=== PATIENT | male | born 1985 | race Caucasian/White ===

== ENCOUNTER 2020-03-30 22:04 | Emergency (ER) | payer OTHER, MEDICAID, SELFPAY ==
--- NOTE | 2020-03-30 22:05 | ED_ITS ---
HPI - Male Genitourinary General Chief complaint: Back Pain/Injury Stated complaint: KIDNEY BACK/BACK PAIN Time Seen by Provider: 03/30/20 22:05 Source: patient Mode of arrival: Ambulatory Limitations: no limitations History of Present Illness HPI Narrative: 34M non smoker with no significant medical history presents with a few days of Left upper back and flank pain. He denies any injury or known painful motions, but admits that he is constantly chasing a toddler. He states it can worsen with moving. He denies N/V/D. He denies fever or shaking chills. His said it sounds like when she has had a kidney infection so he wanted to be checked for that. He denies any dysuria, or urgency, but has had frequency. He denies urinary discharge. MD Complaint: other Onset (ago): day(s) Duration: constant Location: left flank Severity: moderate Quality: aching Relieving factors: rest Exacerbating factors: palpation and movement Associated symptoms: Reports denies other symptoms Related Data Home Medications Medication Instructions Recorded Confirmed cetirizine 10 mg capsule 10 mg PO DAILY 06/11/18 06/11/18 fluoxetine PO 06/11/18 06/11/18 glucosamine-methylsulfonylmeth PO 06/11/18 06/11/18 Previous Rx's Medication Instructions Recorded cyclobenzaprine 10 mg PO TID PRN #14 tab 03/30/20 ketorolac 10 mg PO Q6H PRN #14 tab 03/30/20 Allergies Allergy/AdvReac Type Severity Reaction Status Date / Time No Known Drug Allergies Allergy Verified 06/11/18 10:36 Review of Systems Constitutional Constitutional: Denies chills, Denies fatigue, Denies fever(s), Denies frequent falls, Denies lethargy and Denies weakness Eyes Eyes: Denies change in vision, Denies eye discharge, Denies irritation and Denies loss of vision ENT Ears, Nose, Mouth, and Throat: Denies change in voice, Denies dizziness, Denies neck pain, Denies sore throat and Denies throat swelling Cardiovascular Cardiovascular: Denies chest pain, Denies irregular heart rhythm, Denies lightheadedness, Denies palpitations, Denies dyspnea, Denies dyspnea on exertion and Denies orthopnea Respiratory Respiratory: Denies cough, Denies dyspnea, Denies dyspnea on exertion and Denies wheezing Gastrointestinal Gastrointestinal: Denies abdominal pain, Denies change in bowel habits, Denies diarrhea, Denies nausea and Denies vomiting Genitourinary Genitourinary: Denies difficulty urinating, Denies dysuria and Denies urinary urgency Genitourinary: Denies dysuria and Denies urinary urgency Musculoskeletal Musculoskeletal: Reports back pain, Denies neck pain and Denies numbness Integumentary/Breasts Skin/Breast: Denies pruritus, Denies erythema, Denies rash and Denies wounds Neurologic Neurologic: Denies behavioral changes, Denies confusion, Denies dizziness, Denies frequent falls, Denies loss of vision, Denies numbness and Denies weakness Psychiatric Psychiatric: Denies anxiety, Denies behavioral changes, Denies confusion, Denies depression, Denies homicidal ideation and Denies suicidal ideation Endocrine Endocrine: Denies fatigue, Denies flushing and Denies palpitations Hematologic/Lymphatic Hematologic/Lymphatic: Denies easy bruising Allergic/Immunologic Allergic/Immunologic: Denies urticaria, Denies throat swelling and Denies wheezing Patient History Social History Smoking Status: Never smoker Smoking Status: Never smoker Exam Narrative Exam Narrative: GENERAL: [34] year old patient appears stated age. Well- nourished, well-developed patient, in mild distress. HEAD: Atraumatic. Normocephalic. EYES: Pupils equal round and reactive. Extraocular motions intact. No scleral icterus. No injection or drainage. ENT: Nose without bleeding, purulent drainage. Throat without erythema, tonsillar hypertrophy or exudate. Airway patent. NECK: Trachea midline. Non tender CARDIOVASCULAR: Regular rate and rhythm without murmurs, gallops, or rubs. RESPIRATORY: Clear to auscultation. Breath sounds equal bilaterally. No wheezes, rales, or rhonchi. GASTROINTESTINAL: Abdomen soft, non-tender, nondistended. EXTREMITIES: No edema or joint tenderness. BACK: Left CVA tenderness Nontender without deformity or crepitance. NEURO: AOx3. SKIN: No rash or erythema of visible areas Initial Vital Signs Initial Vital Signs: Vital Signs Temperature 97.6 F 03/30/20 22:09 Pulse Rate 64 03/30/20 22:09 Respiratory Rate 18 03/30/20 22:09 Blood Pressure 144/73 H 03/30/20 22:09 Pulse Oximetry 100 03/30/20 22:09 Course Orders Ordered: ED Orders 03/30/20 22:30 Alanine Aminotransferase Stat Alkaline Phosphatase Stat Aspartate Aminotransferase Stat Basic Metabolic Panel Stat Bilirubin Total Stat Complete Blood Count AUTO DIFF Stat D Dimer Stat Ferritin Stat 03/30/20 22:38 CT kidney ureter bladder (KUB) Stat Sodium Chloride (Normal Saline 0.9%) 1,000 mls @ 1,000 mls/hr IV BOLUS ONE Stop: 03/30/20 23:32 Last Admin: 03/30/20 22:54 Dose: 1,000 mls/hr Documented by: ABIGAIL Discontinued Medications Cyclobenzaprine HCl (Flexeril 10 Mg Prepack) 1 bottle MISC SEEINSTR ONE Stop: 03/30/20 23:24 Ketorolac Tromethamine (Toradol) 15 mg IV NOW ONE Stop: 03/30/20 22:34 Last Admin: 03/30/20 22:54 Dose: 15 mg Documented by: ABIGAIL Vital Signs Vital signs: Vital Signs - 8 hr 03/30/20 22:09 Temperature 97.6 F Pulse Rate 64 Respiratory Rate 18 Blood Pressure 144/73 H Pulse Oximetry 100 MDM - Male Genitourinary Lab Data Result diagrams: 03/30/20 22:30 03/30/20 22:30 Labs: Lab Results 03/30/20 03/30/20 03/30/20 Range/Units 22:30 22:30 22:30 WBC 7.0 (4.5-11.0) X10^3/uL RBC 4.77 (4.5-5.9) X10^6/uL Hgb 14.3 (13.5-17.5) g/dL Hct 41.6 (41-53) % MCV 87.2 (80-100) fL MCH 30.0 (26-34) PG MCHC 34.4 (30-36) % RDW 13.1 (11.6-14.8) % Plt Count 181 (150-400) X10^3/uL Neut % (Auto) 52.5 (50-75) % Lymph % (Auto) 30.7 (25-40) % Tillman % (Auto) 11.7 (3-14) % Eos % (Auto) 4.3 H (2-4) % Baso % (Auto) 0.8 (0-2) % Neut # (Auto) 3700 (2950-8907) /uL Lymph # (Auto) 2100 (0720-0317) /uL Tillman # (Auto) 800 (0-900) /uL Eos # (Auto) 300 (0-450) /uL Baso # (Auto) 100 (0-100) /uL Sodium 138 (137-145) mmol/L Potassium 4.1 (3.4-5.1) mmol/L Chloride 105 (98-107) mmol/L Carbon Dioxide 28 (22-32) mmol/L BUN 23 H (9-20) mg/dL Creatinine 1.13 (0.66-1.25) mg/dL Estimated GFR > 60.0 (>60) mL/min BUN/Creatinine Ratio 20.4 (6-22) Glucose 103 H (70-100) mg/dL Calcium 9.0 (8.4-10.2) mg/dL Total Bilirubin 0.5 (0.2-1.3) mg/dL AST 57 (17-59) IU/L ALT 94 H (<50) IU/L Alkaline Phosphatase 80 (38-126) U/L Urine Dip Bedside Urine Glucose Negative Bedside Urine Bilirubin - Negative Bedside Urine Ketone - Negative Urine Specific Bronson 1.015 Bedside Urine Occult Blood +/- Bedside Urine pH 7.5 Bedside Urine Protein - Negative Bedside Urine Urobilinogen - Negative Bedside Urine Nitrite - Negative Bedside Urine Leukocytes - Negative Esterase MDM Narrative Medical decision making narrative: Multiple etiologies for patient's symptoms considered including: [pyelo vs. kidney stones vs. MSK injury vs. other] Patient's symptoms improved or duration of stay with above-stated therapies. Findings and discharge diagnosis discussed with patient/family followed by verbalization of understanding Return precautions discussed with patient/family whom verbalize understanding. Discharge Plan Departure Patient Disposition: Home Clinical Impression: Acute left flank pain Instructions: DI for Flank Pain Activity Restrictions/Additional Instructions: *You have been diagnosed with [left flank pain. Urine would suggest no kidney infection, labs are reassuring and CT rules out kidney stone.] *What to do: *Take medications as directed *Follow up with your primary care provider in 2-3 days, call for an appointment. Let them know you were seen in the Emergency Department and that we ask that you be seen in follow up *Return to ER if you should have any new, worsening or concerning symptoms Prescriptions: New cyclobenzaprine 10 mg tablet 10 mg PO TID PRN (Reason: muscle spasm) Qty: 14 RF: 0 ketorolac 10 mg tablet 10 mg PO Q6H PRN (Reason: pain) Qty: 14 RF: 0 No Action cetirizine [Zyrtec] 10 mg capsule 10 mg PO DAILY RF: 0 fluoxetine PO RF: 0 glucosamine-methylsulfonylmeth PO RF: 0 Referrals: [facility] [Outside]
[2020-03-30 22:09] VITALS: BP 144/73; PULSE 64; RESP 18; TEMP 36.4; O2SAT 100
--- NOTE | 2020-03-30 22:38 | DI.CT.S_ITS ---
PROCEDURE: CT KIDNEY URETER BLADDER (KUB) INDICATIONS: Left flank pain, radiates to groin TECHNIQUE: Noncontrast 5 mm thick sections acquired from the diaphragms to the symphysis. 5 mm thick coronal and sagittal reformats were then performed. For radiation dose reduction, the following was used: automated exposure control, adjustment of mA and/or kV according to patient size. COMPARISON: None. FINDINGS: Image quality: Excellent. Lung bases: Lung bases are clear. 8mm right basilar pulmonary status. Heart size is normal. Urinary system: Both kidneys are normal in size. No kidney stones. No hydronephrosis or perinephric fat stranding. Both ureters appear non-dilated throughout their expected courses. Bladder wall thickness is normal; no calcified bladder stones. Other solid organs: Liver is normal in size. Gallbladder is contracted, but within normal limits. Pancreas is normal in contours. Spleen is normal in size. No adrenal nodules. Peritoneum and bowel: Small hiatal hernia. Unenhanced bowel loops demonstrate normal wall thickness and caliber. No free fluid or air. It is not visualized and may be absent. Nodes and vessels: No retroperitoneal or mesenteric adenopathy by size criteria. Aorta and inferior vena cava are normal in caliber. Abdominal wall: No ventral hernias. Pelvis: No free pelvic fluid. No inguinal hernias or adenopathy. Bones: No suspicious bony lesions. No vertebral body compression fractures. IMPRESSION: No renal stone or hydronephrosis. Dictated by: Ayleen Mcneill MD, PhD on 03/31/2020 at 7:15 Approved by: Ayleen Mcneill MD, PhD on 03/31/2020 at 7:17
[2020-03-30 22:41] LABS: Add Manual Diff / Slide Review NO; Basophils Absolute Auto 100 /uL (0-100); Basophils Percent Auto 0.8 % (0-2); Eosinophils Absolute Auto 300 /uL (0-450); Eosinophils Percent Auto 4.3 % (2-4); Hematocrit 41.6 % (41-53); Hemoglobin 14.3 g/dL (13.5-17.5); Lymphocytes Absolute Auto 2100 /uL (1100-4500); Lymphocytes Percent Auto 30.7 % (25-40); Mean Corpuscular HGB Conc 34.4 % (30-36); Mean Corpuscular Volume 87.2 fL (80-100); Monocytes Absolute Auto 800 /uL (0-900); Monocytes Percent Auto 11.7 % (3-14); Neutrophils Absolute Auto 3700 /uL (1500-7000); Neutrophils Percent Auto 52.5 % (50-75); Platelet Count 181 X10^3/uL (150-400); Red Blood Cell Count 4.77 X10^6/uL (4.5-5.9); Red Cell Distribution Width 13.1 % (11.6-14.8)
[2020-03-30 22:50] LABS: BUN Creatinine Ratio 20.4 (6-22); Blood Urea Nitrogen 23 mg/dL (9-20); Carbon Dioxide 28 mmol/L (22-32); Chloride 105 mmol/L (98-107); Estimated Glomerular Filt Rate > 60.0 mL/min (>60); Glucose 103 mg/dL (70-100); HEMOLYSIS 26 (0-50); Potassium 4.1 mmol/L (3.4-5.1); Sodium 138 mmol/L (137-145)
[2020-03-30] MEDS: KETOROLAC 60 MG/2 ML VIAL 15 MG IV (22:54)
[2020-03-30] MEDS: SODIUM CHLORIDE 0.9% 1,000 ML 1000 ML IV (22:54)
[2020-03-30 23:23] LABS: Alanine Aminotransferase 94 IU/L (<50); Alkaline Phosphatase 80 U/L (38-126); Aspartate Aminotransferase 57 IU/L (17-59); Bilirubin Total 0.5 mg/dL (0.2-1.3)
[2020-03-30] MEDS: CYCLOBENZAPRINE 10 MG PREPACK 1 BOTTLE MISC (23:33)
[2020-03-30 23:39] LABS: D Dimer 213 ng/mL (<230)
[2020-03-30 23:59] LABS: Ferritin 61 ng/mL (18-464)
== END 2020-03-31 00:09 | disposition home or self-care (01) ==
PROVIDERS: Emergency Provider Emergency Medicine
DX: R10.9 Unspecified abdominal pain (principal); R35.0 Frequency of micturition
CPT/HCPCS: 36415; 74176; 80048; 81003; 82247; 82728; 84075; 84450; 84460; 85025; 85379; 96361; 96374; 99284; J1885

== ENCOUNTER 2020-07-14 15:09 | Emergency (ER) | payer OTHER, MEDICAID, SELFPAY ==
[2020-07-14 15:10] VITALS: BP 136/75; PULSE 74; RESP 15; TEMP 36.2; O2SAT 98
[2020-07-14 15:15] VITALS: BP 136/75; PULSE 71; O2SAT 96
[2020-07-14 15:30] VITALS: BP 116/57; PULSE 65; O2SAT 95
[2020-07-14] MEDS: FAMOTIDINE 20 MG TABLET PO (15:53)
[2020-07-14] MEDS: TRIMETH/SULFA 160/800 (DS) TABLET 1 TAB PO (15:53)
[2020-07-14] MEDS: predniSONE 20 MG TABLET 40 MG PO (15:54)
[2020-07-14] MEDS: TET,DIPH,PERTUSS(ACELL),VAC/PF 0.5 ML SYRINGE IM (15:59)
[2020-07-14 16:00] VITALS: PULSE 60; O2SAT 96
[2020-07-14 16:01] VITALS: BP 114/57; PULSE 66; O2SAT 95
[2020-07-14 16:30] VITALS: BP 104/51; PULSE 67; O2SAT 97
--- NOTE | 2020-07-14 21:41 | ED_ITS ---
HPI - Skin/Abscess/Foreign Bdy <Andrew SolomonISSAC Pham - Last Filed: 07/14/20 22:13> General Chief complaint: Skin/Abscess/Foreign Body Stated complaint: bee sting, swollen right hand Time Seen by Provider: 07/14/20 15:23 Source: patient Mode of arrival: Ambulatory Limitations: no limitations History of Present Illness HPI narrative: This is 34-year-old male, nonsmoker, who has non contributory medical history presents to ED with chief complain of right hand pain and itching, swelling, warmth, redness and he was stung possibly by a bee yesterday at noon while he was in outdoor. Patient right dominant hand. Patient reports today he felt his right hand became hot to touch. Patient unsure of last tetanus immunization. He denies chest pain, breathing difficulty, nausea, vomiting, abdominal pain, oropharyngeal swelling or near syncope. Patient denies fever or chills. Patient is not immunocompromised. Related Data Home Medications Medication Instructions Recorded Confirmed cetirizine 10 mg capsule 10 mg PO DAILY 06/11/18 06/11/18 fluoxetine PO 06/11/18 06/11/18 glucosamine-methylsulfonylmeth PO 06/11/18 06/11/18 lamotrigine 20 mg PO DAILY 07/14/20 07/14/20 Previous Rx's Medication Instructions Recorded cyclobenzaprine 10 mg PO TID PRN #14 tab 03/30/20 ketorolac 10 mg PO Q6H PRN #14 tab 03/30/20 prednisone 40 mg PO DAILY 5 Days tab 07/14/20 sulfamethoxazole-trimethoprim 1 tab PO DAILY 5 Days tab 07/14/20 Allergies Allergy/AdvReac Type Severity Reaction Status Date / Time No Known Drug Allergies Allergy Verified 06/11/18 10:36 Review of Systems <Andrew CoreyISSAC Bryant - Last Filed: 07/14/20 22:13> Review of Systems Narrative: General: Denies fever, chills, fatigue, malaise, sweats. HEENT: Denies sinus pain, ear pain, sore throat, difficulty swallowing, dizziness. Respiratory: Denies dyspnea, cough, wheezing, hemoptysis, sputum. Cardiovascular: Denies chest pain, palpitations, orthopnea, edema. Gastrointestinal: Denies nausea, vomiting, abdominal pain, diarrhea, constipation, melena. : Denies dysuria, frequency, incontinence, hematuria, urinary retention. Musculoskeletal: Denies weakness, joint pain or bony pain. Skin: See HPI Neurologic: Denies weakness, headache, numbness, change in speech, confusion, seizures, incoordination. Psychiatric: No concerning psychosocial issues. 12-point review of systems is negative except for those stated above. Patient History <ISSAC Cee - Last Filed: 07/14/20 22:13> Medical History Anxiety (Acute) Depression (Acute) History of traumatic rupture of spleen (Acute) Seasonal allergies (Acute) Surgical History H/O sinus surgery (Acute) History of appendectomy (Acute) History of tonsillectomy (Acute) Social History Smoking Status: Never smoker Smoking Status: Never smoker alcohol intake frequency: a few times a month Substance Use Type: does not use Exam <ISSAC Cee - Last Filed: 07/14/20 22:13> Narrative Exam Narrative: General appearance: well developed, well nourished, in no acute distress. Head: normocephalic, atraumatic, no scalp lesions, non-tender. ENT: Hearing grossly intact. Nose without bleeding, purulent discharge, septal hematoma or deviation. Turbinate without erythema or swelling. Facial sinuses nontender to palpate. Mucous membrane moist, no mucosal lesion. Throat without erythema, tonsillar hypertrophy or exudate. Uvula in midline, airway patent without edema. Neck/Thyroid: neck supple, full range of motion, no visible masses or meningeal signs. No JVD, non-tender without lymphadenopathy. Skin: Erythema and edema in right dorsal hand and fingers extending to wrist and distal forearm which is warm to touch. Patient has limited range of motion on right hand due to swelling. No suspicious rashes, lesions over visible areas. Warm and dry and appropriate color for ethnicity. Heart: no clubbing, no cyanosis, no edema. S1 and S2 normal. RRR w/o murmurs, clicks, or bruits. Lungs: Breathing even and unlabored. No stridor. No accessory muscles used. Able to speak in full sentences. Chest: normal shape and expansion. Abdomen: non-obese, non-distended. Neurologic: alert and oriented. Cognitive exam, RESPIRATORY SUPPORT TECHNICIAN and PNS grossly intact on informal exam. Psych: good eye contact, normal affect. Initial Vital Signs Initial Vital Signs: Vital Signs Temperature 97.1 F L 07/14/20 15:10 Pulse Rate 74 07/14/20 15:10 Respiratory Rate 15 07/14/20 15:10 Blood Pressure 136/75 07/14/20 15:10 Pulse Oximetry 98 07/14/20 15:10 Extrem Right upper extremity: hand Details: abnormal to inspection, normal capillary refill, neurosensory exam normal, tenderness, vascular exam Details: radial pulse present and normal capillary refill, abnormal ROM of finger (Flexion slightly limited Secondary to swelling to fingers), warmth, swelling and other (Erythematous and the edge marked with skin pen) <Greta Sahni MD - Last Filed: 07/15/20 07:19> Initial Vital Signs Initial Vital Signs: Vital Signs Temperature 97.1 F L 07/14/20 15:10 Pulse Rate 74 07/14/20 15:10 Respiratory Rate 15 07/14/20 15:10 Blood Pressure 136/75 07/14/20 15:10 Pulse Oximetry 98 07/14/20 15:10 Scores <ISSAC Cee - Last Filed: 07/14/20 22:13> GCS [place] coma scale eye opening: Spontaneous [place] coma scale verbal response: Orientated [place] coma scale motor response: Obey commands [place] coma scale total score: 15 Course <ISSAC Cee - Last Filed: 07/14/20 22:13> Orders Ordered: Discontinued Medications Diphtheria/Tetanus/Acell Pertussis (Adacel) 0.5 ml IM .ONCE ONE Stop: 07/14/20 15:39 Last Admin: 07/14/20 15:59 Dose: 0.5 ml Documented by: LEATHA Famotidine (Pepcid Ac) 20 mg PO NOW ONE Stop: 07/14/20 15:36 Last Admin: 07/14/20 15:53 Dose: 20 mg Documented by: HITESH Prednisone (Deltasone) 40 mg PO NOW ONE Stop: 07/14/20 15:33 Last Admin: 07/14/20 15:54 Dose: 40 mg Documented by: HITESH Trimethoprim/Sulfamethoxazole (Bactrim Ds) 1 tab PO NOW ONE Stop: 07/14/20 15:38 Last Admin: 07/14/20 15:53 Dose: 1 tab Documented by: HITESH Vital Signs Vital signs: Vital Signs - 8 hr 07/14/20 15:10 07/14/20 15:15 07/14/20 15:30 Temperature 97.1 F L Pulse Rate 74 71 65 Respiratory Rate 15 Blood Pressure 136/75 136/75 116/57 L Pulse Oximetry 98 96 95 07/14/20 16:00 07/14/20 16:01 07/14/20 16:30 Temperature Pulse Rate 60 66 67 Respiratory Rate Blood Pressure 114/57 L 104/51 L Pulse Oximetry 96 95 97 <Greta Sahni MD - Last Filed: 07/15/20 07:19> Orders Ordered: Discontinued Medications Diphtheria/Tetanus/Acell Pertussis (Adacel) 0.5 ml IM .ONCE ONE Stop: 07/14/20 15:39 Last Admin: 07/14/20 15:59 Dose: 0.5 ml Documented by: LEATHA Famotidine (Pepcid Ac) 20 mg PO NOW ONE Stop: 07/14/20 15:36 Last Admin: 07/14/20 15:53 Dose: 20 mg Documented by: HITESH Prednisone (Deltasone) 40 mg PO NOW ONE Stop: 07/14/20 15:33 Last Admin: 07/14/20 15:54 Dose: 40 mg Documented by: HITESH Trimethoprim/Sulfamethoxazole (Bactrim Ds) 1 tab PO NOW ONE Stop: 07/14/20 15:38 Last Admin: 07/14/20 15:53 Dose: 1 tab Documented by: HITESH Vital Signs Vital signs: Vital Signs - 8 hr 07/14/20 15:10 07/14/20 15:15 07/14/20 15:30 Temperature 97.1 F L Pulse Rate 74 71 65 Respiratory Rate 15 Blood Pressure 136/75 136/75 116/57 L Pulse Oximetry 98 96 95 07/14/20 16:00 07/14/20 16:01 07/14/20 16:30 Temperature Pulse Rate 60 66 67 Respiratory Rate Blood Pressure 114/57 L 104/51 L Pulse Oximetry 96 95 97 [facility] - Skin/Abscess/Foreign Bdy <Andrew ISSAC Flowers - Last Filed: 07/14/20 22:13> Differential Diagnosis Differential diagnosis: Likely cellulitis, insect bites and other (Allergic reaction to insect bite) Medical Records Attestation: I reviewed the patient's medical records. [facility] Narrative Medical decision making narrative: This is a 34-year-old male presents to ED with right dominant hand warmth, swelling, pain and itching sensation and redness after he was stung by possibly of be yesterday afternoon. Patient noted warmth spreading on right hand today with difficulty flexing his fingers due to swelling. Patient takes singular and Zyrtec daily for seasonal allergies. No anaphylactic symptoms reported or appreciated during exam. Physical exam concerning for cellulitis from insect bite. Patient is afebrile and hemodynamically stable. Patient was medicated with 1st dose of Septra DS, prednisone, Pepcid and Tdap updated. Return precautions were discussed with patient and patient verbalized understanding and agreement with the treatment plan. Discharge Plan Departure Patient Disposition: Home Clinical Impression: Hx of insect sting Cellulitis Qualifiers: Site of cellulitis: extremity Site of cellulitis of extremity: upper extremity Laterality: right Qualified Code(s): L03.113 - Cellulitis of right upper limb Discharge Date/Time: 07/14/20 16:43 Instructions: DI for Cellulitis -- Adult, DI for Insect Bites and Stings Activity Restrictions/Additional Instructions: You have been diagnosed with [cellulitis likely from insect bites on right dominant hand.]. What to do: *Take your medications as directed. Please continue to take antibiotic medication twice a day for next 5 days. Prednisone 40 mg daily for next 4 days which is a steroid. You can add [id number] Pepcid 20 mg once a day and Benadryl 25-50 mg as needed for itching, redness, swelling up to 3 times a day. Prednisone may cause drowsiness so please take precautions not driving, drinking alcohol or operating heavy equipments. *Follow up with your primary care provider in 2-3 days, call for an appointment. Let them know you were seen in the ED and that we asked you to be seen in follow up. *Return to ED if you have any new, worsening, or concerning symptoms, such as [fever, worsening redness, warmth, purulent discharge, increasing pain, swelling, chest pain, breathing difficulty, unable to tolerate fluids, or any acute concerns]. Prescriptions: New sulfamethoxazole-trimethoprim 800-160 mg tablet 1 tab PO DAILY 5 Days RF: 0 prednisone 20 mg tablet 40 mg PO DAILY 5 Days RF: 0 No Action cetirizine [Zyrtec] 10 mg capsule 10 mg PO DAILY RF: 0 fluoxetine PO RF: 0 glucosamine-methylsulfonylmeth PO RF: 0 cyclobenzaprine 10 mg tablet 10 mg PO TID PRN (Reason: muscle spasm) Qty: 14 RF: 0 ketorolac 10 mg tablet 10 mg PO Q6H PRN (Reason: pain) Qty: 14 RF: 0 lamotrigine 20 mg PO DAILY RF: 0 Referrals: [facility] [Outside] <Greta Sahni MD - Last Filed: 07/15/20 07:19> Cosign ED Attending Cosignature Attestation: I was immediately available in the department for consultation throughout this patient's visit. I agree with documentation as above. Greta Sahni MD
== END 2020-07-14 16:43 | disposition home or self-care (01) ==
PROVIDERS: Emergency Provider Nurse Practitioner Family
DX: L03.113 Cellulitis of right upper limb (principal); Z23 Encounter for immunization
CPT/HCPCS: 90471; 99283; 90715; A9270

== ENCOUNTER 2021-03-20 15:44 | Emergency (ER) | payer OTHER, MEDICAID, SELFPAY ==
[2021-03-20 15:46] VITALS: BP 137/73; PULSE 65; RESP 16; TEMP 37; O2SAT 98
[2021-03-20] MEDS: TET,DIPH,PERTUSS(ACELL),VAC/PF 0.5 ML SYRINGE IM (16:10)
--- NOTE | 2021-03-20 16:38 | DI.RAD.S_ITS ---
PROCEDURE: XR TIBIA FIBULA LT 2V INDICATIONS: laceration TECHNIQUE: 2 views of the tibia and fibula were acquired. COMPARISON: None. FINDINGS: Bones: No fractures or dislocations. No suspicious bony lesions. Soft tissues: No suspicious soft tissue calcifications or masses. No radiopaque foreign bodies are seen. IMPRESSION: No significant plain film abnormality is seen. Dictated by: Rob Urrutia M.D. on 03/20/2021 at 16:03 Approved by: Rob Urrutia M.D. on 03/20/2021 at 16:03
--- NOTE | 2021-03-20 17:04 | ED.WOUNDLAC ---
HPI - Wound/Laceration General Chief Complaint: Wound/Laceration Stated Complaint: RIGHT LEG LACERATION Time Seen by Provider: 03/20/21 16:01 Source: patient Mode of arrival: Ambulatory History of Present Illness HPI narrative: Vlad presents today with chief complaint of cut to his right brennan. He reports that he was chopping some wood with an Axe and child bumped him which cause the ax to hit into his brennan. They immediately washed it out and his put some topical glue. Unknown last tetanus date. He reports that it immediately started to swell up a but has now started to go back down. He is able to walk on it but does report slight pain. He denies any other acute concerns or complaints at this time. Related Data Home Medications Medication Instructions Recorded Confirmed cetirizine 10 mg capsule 10 mg PO DAILY 06/11/18 06/11/18 fluoxetine PO 06/11/18 06/11/18 glucosamine-methylsulfonylmeth PO 06/11/18 06/11/18 lamotrigine 20 mg PO DAILY 07/14/20 07/14/20 Previous Rx's Medication Instructions Recorded cyclobenzaprine 10 mg PO TID PRN #14 tab 03/30/20 ketorolac 10 mg PO Q6H PRN #14 tab 03/30/20 Allergies Allergy/AdvReac Type Severity Reaction Status Date / Time No Known Drug Allergies Allergy Verified 06/11/18 10:36 Review of Systems Review of Systems ROS Unobtainable: All systems reviewed & are unremarkable except as noted in HPI and below Patient History Medical History (Updated 03/20/21 @ 17:10 by Partha Stewart PA-C) Anxiety Depression History of traumatic rupture of spleen Seasonal allergies Surgical History H/O sinus surgery History of appendectomy History of tonsillectomy Social History Smoking Status: Never smoker Smoking Status: Never smoker alcohol intake frequency: a few times a month Substance Use Type: does not use Exam Narrative Exam Narrative: Exam Narrative: Const General: cooperative, healthy appearing, comfortable, no acute distress, well developed and well groomed Nutritional Appearance: Elevated BMI Orientation: alert and oriented x3 HENMT Head: normal to inspection and atraumatic Ears: hearing grossly normal bilaterally Nose: external nose normal and nares normal Face and sinus: normal facial exam Neck Neck: normal visual inspection and supple Resp Effort & Inspection: normal respiratory effort, able to speak in complete sentences, no audible wheezes, not labored, no nasal flaring and no respiratory distress Neuro General: alert, oriented x3, gait normal, tone normal and moves all extremities Cognition: normal cognition Speech: speech normal Gait: normal gait Extremities Bilateral lower extremities exposed for evaluation. 2 cm linear laceration to the right anterior brennan noted. Mild surrounding tenderness to the touch. Slight swelling noted. No significant surrounding erythema. Appearance: grossly normal and well kempt Mental Status: mental status grossly normal Speech and Movement: speech and movement normal Mood: congruent mood Affect: normal affect Initial Vital Signs Initial Vital Signs: Vital Signs Temperature 98.6 F 03/20/21 15:46 Pulse Rate 65 03/20/21 15:46 Respiratory Rate 16 03/20/21 15:46 Blood Pressure 137/73 03/20/21 15:46 Pulse Oximetry 98 03/20/21 15:46 Course Orders Ordered: ED Orders 03/20/21 16:38 XR tibia fibula LT 2V Stat Discontinued Medications Diphtheria/Tetanus/Acell Pertussis (Tet,Diph,Pertuss(Acell),Vac/Pf 0.5 Ml Syringe) 0.5 ml IM .ONCE ONE Stop: 03/20/21 15:51 Last Admin: 03/20/21 16:10 Dose: 0.5 ml Documented by: [email or web address] Vital Signs Vital signs: Vital Signs - 8 hr 03/20/21 15:46 03/20/21 17:17 Temperature 98.6 F Pulse Rate 65 68 Respiratory Rate 16 16 Blood Pressure 137/73 140/90 Pulse Oximetry 98 97 MDM - Wound/Laceration Differential Diagnosis Differential diagnosis: Likely laceration Medical Records Attestation: I reviewed the patient's medical records. Lab Data Attestation: I reviewed the patient's lab results. [facility] Narrative Medical decision making narrative: No obvious fracture. No significant signs of infection. Tetanus was updated. monitor for signs of infection which include increased redness, swelling, pain, fever. Return if you experience any of these or have any other acute concerns or complaints. Patient verbalizes understanding and agrees to plan and has no further concerns at this time. Thank you A [id number] system was used with the dictation of this note. Please disregard any spelling or grammatical errors. Discharge Plan Departure Patient Disposition: Home Clinical Impression: Laceration Discharge Date/Time: 03/20/21 17:18 Instructions: DI for Wound Infection, DI for Minor Laceration Prescriptions: No Action cetirizine [Zyrtec] 10 mg capsule 10 mg PO DAILY RF: 0 fluoxetine PO RF: 0 glucosamine-methylsulfonylmeth PO RF: 0 cyclobenzaprine 10 mg tablet 10 mg PO TID PRN (Reason: muscle spasm) Qty: 14 RF: 0 ketorolac 10 mg tablet 10 mg PO Q6H PRN (Reason: pain) Qty: 14 RF: 0 lamotrigine 20 mg PO DAILY RF: 0
[2021-03-20 17:17] VITALS: BP 140/90; PULSE 68; RESP 16; O2SAT 97
== END 2021-03-20 17:18 | disposition home or self-care (01) ==
PROVIDERS: Emergency Provider Physician Assistant
DX: S81.811A Laceration without foreign body, right lower leg, initial encounter (principal); W27.0XXA Contact with workbench tool, initial encounter; Z23 Encounter for immunization
CPT/HCPCS: 73590; 90471; 99283; 90715

== ENCOUNTER → 2021-09-14 13:32 | Outpatient (CLI) | payer OTHER, MEDICAID, SELFPAY ==
[2021-09-14 14:04] LABS: COVID19 -Nasal RAPID Negative (Negative)
== END ==
PROVIDERS: Visit Provider Nurse Practitioner Family
DX: Z20.822 Contact with and (suspected) exposure to COVID-19 (principal)
CPT/HCPCS: 87635

== ENCOUNTER → 2021-09-14 13:56 | Outpatient (CLI) | payer OTHER, MEDICAID, SELFPAY ==
--- NOTE | 2021-09-14 13:59 | DI.RAD.S_ITS ---
PROCEDURE: XR CHEST 2V INDICATIONS: cough TECHNIQUE: 2 views of the chest were acquired. COMPARISON: None. FINDINGS: Surgical changes and devices: None. Lungs and pleura: Lungs are clear. No pleural effusions or pneumothorax. Mediastinum: Mediastinal contours are normal. Heart size is normal. Bones and chest wall: No suspicious bony abnormalities. Soft tissues appear unremarkable. IMPRESSION: No acute cardiopulmonary abnormality. Dictated by: Umer Paz M.D. on 09/14/2021 at 14:10 Approved by: Umer Paz M.D. on 09/14/2021 at 14:11
== END ==
PROVIDERS: Referring Provider Nurse Practitioner Family; Visit Provider Nurse Practitioner Family
DX: R05.9 Cough, unspecified (principal); Z20.822 Contact with and (suspected) exposure to COVID-19
CPT/HCPCS: 71046; 87635

== ENCOUNTER 2022-07-03 20:17 | Emergency (ER) | payer OTHER, MEDICAID, SELFPAY ==
[2022-07-03 21:16] VITALS: BP 147/66; PULSE 69; RESP 17; TEMP 36.8; O2SAT 98; BMI 35.3
--- NOTE | 2022-07-03 21:44 | ED_ITS ---
HPI - Allergic Reaction General Chief complaint: Allergic Reaction Stated complaint: Stung by bee left arm swelling pain Time Seen by Provider: 07/03/22 20:20 Source: patient Mode of arrival: Ambulatory History of Present Illness HPI narrative: 28-year-old male who yesterday sustained a bee sting to his left forearm. He states he did not have much symptoms afterwards. Has never had a allergic reaction to bee stings in the past. He states that today he had a fairly sudden onset of increase in redness and discomfort to his left arm. No problems breathing. No nausea vomiting. Does have some tingling in his throat. No fevers. Did take a Benadryl prior to arrival. Related Data Home Medications Medication Instructions Recorded Confirmed cetirizine 10 mg capsule (Zyrtec) 10 mg PO DAILY 06/11/18 06/11/18 fluoxetine PO 06/11/18 06/11/18 glucosamine-methylsulfonylmeth PO 06/11/18 06/11/18 [Glucosamine Msm] lamotrigine 20 mg PO DAILY 07/14/20 07/14/20 Previous Rx's Medication Instructions Recorded cyclobenzaprine 10 mg tablet 10 mg PO TID PRN muscle spasm #14 03/30/20 tabs ketorolac 10 mg tablet 10 mg PO Q6H PRN pain #14 tabs 03/30/20 benzonatate 100 mg capsule 100 mg PO BID PRN cough #20 caps 09/14/21 prednisone 20 mg tablet 20 mg PO DAILY 7 days #7 tabs 07/03/22 Allergies Allergy/AdvReac Type Severity Reaction Status Date / Time bee venom protein (honey bee) Allergy ITCHING Verified 07/03/22 21:21 Review of Systems Constitutional Constitutional: Reports system reviewed and no additional complaints, except as documented Integumentary/Breasts Skin/Breast: Reports system reviewed and no additional complaints, except as documented Neurologic Neurologic: Reports system reviewed and no additional complaints, except as documented Allergic/Immunologic Allergic/Immunologic: Reports system reviewed and no additional complaints, exce pt as documented Patient History Medical History Anxiety Depression History of traumatic rupture of spleen Seasonal allergies Surgical History H/O sinus surgery History of appendectomy History of tonsillectomy Social History Smoking Status: Never smoker Smoking Status: Never smoker alcohol intake frequency: a few times a month Substance Use Type: does not use Exam Initial Vital Signs Initial Vital Signs: Vital Signs Temperature 98.2 F 07/03/22 21:16 Pulse Rate 69 07/03/22 21:16 Respiratory Rate 17 07/03/22 21:16 Blood Pressure 147/66 H 07/03/22 21:16 Pulse Oximetry 98 07/03/22 21:16 Oxygen Delivery Method 07/03/22 21:16 [facility] Head: normal to inspection and normocephalic Mouth: oropharynx normal and moist mucous membranes Throat: posterior oropharynx normal Skin Other: Patient does have redness and swelling to the proximal portion of the left forearm. The bee sting occurred proximal portion of the forearm on the dorsal aspect. Also has swelling along this area. The redness extends to the distal 1/3 of the forearm and up just proximal to the elbow. Neuro General: patient alert, patient awake, patient oriented x3 and moves all extremities Extrem Other: Swelling to the left forearm. Is able to flex and extend the left wrist. Course Orders Ordered: Discontinued Medications Famotidine (Famotidine 20 Mg/2 Ml Vial) 20 mg IV NOW BOB Last Admin: 07/03/22 21:55 Dose: 20 mg Documented By: AT Methylprednisolone (Methylprednisolone 125 Mg/2 Ml Vial) 125 mg IV NOW ONE Stop: 07/03/22 21:40 Last Admin: 07/03/22 21:58 Dose: 125 mg Documented By: AT Vital Signs Vital signs: Vital Signs - 8 hr 07/03/22 21:16 07/03/22 22:53 Temperature 98.2 F Pulse Rate 69 62 Respiratory Rate 17 14 Blood Pressure 147/66 H 121/71 Pulse Oximetry 98 97 Oxygen Delivery Method Room Air Room Air MDM - Allergic Reaction MDM Narrative Medical decision making narrative: Patient does appear to be having allergic reaction most likely to the bee sting however it is somewhat unusual that the sting happened yesterday. I have low suspicion for infection. He was given steroids here in the ER and he did have improvement of his symptoms. He was less swollen and less erythematous. Doubt anaphylaxis. Was sent home with a course of oral steroids. We will hold on any antibiotics for now over the patient was given return precautions with regard to an infection. He expressed understanding and agreement. Discharge Plan Departure Patient Disposition: Home Clinical Impression: Allergic reaction to insect sting Instructions: DI for Insect Bites and Stings Activity Restrictions/Additional Instructions: A prescription for steroids was sent to sp. Please take them as directed. Contact your primary doctor for a follow-up. You can continue to take Benadryl as needed. Return to the emergency department for any new or worsening symptoms. Prescriptions: New prednisone 20 mg tablet 20 mg PO DAILY 7 Days Qty: 7 0RF No Action cetirizine [Zyrtec] 10 mg capsule 10 mg PO DAILY fluoxetine PO glucosamine-methylsulfonylmeth PO benzonatate 100 mg capsule 100 mg PO BID PRN (Reason: cough) Qty: 20 0RF cyclobenzaprine 10 mg tablet 10 mg PO TID PRN (Reason: muscle spasm) Qty: 14 0RF ketorolac 10 mg tablet 10 mg PO Q6H PRN (Reason: pain) Qty: 14 0RF lamotrigine 20 mg PO DAILY Visit Report Forms: Patient Portal/API
[2022-07-03] MEDS: FAMOTIDINE 20 MG/2 ML VIAL IV (21:55)
[2022-07-03] MEDS: methylPREDNISolone 125 MG/2 ML VIAL IV (21:58)
[2022-07-03 22:53] VITALS: BP 121/71; PULSE 62; RESP 14; O2SAT 97
== END 2022-07-03 22:54 | disposition home or self-care (01) ==
PROVIDERS: Emergency Provider Emergency Medicine
DX: T63.441A Toxic effect of venom of bees, accidental (unintentional), initial encounter (principal)
CPT/HCPCS: 96374; 96375; 99283; 99284; J2930

== ENCOUNTER 2022-12-26 06:27 | Day surgery (SDC) | payer OTHER, MEDICAID, SELFPAY ==
[2022-12-21 15:23] VITALS: BMI 35.8
[2022-12-26] VITALS (7 sets, daily range): BP systolic 93–135; BP diastolic 55–78; PULSE 66–73; RESP 12–18; TEMP 36.2–36.4; O2SAT 93–98; BMI 35.8
[2022-12-26] MEDS: LACTATED RINGERS 1,000 ML 42 ML IV (07:21)
--- NOTE | 2022-12-26 07:34 | PM.PREOP ---
Pre-operative Note COVID-19 COVID-19 status: Not tested Interval Note History & Physical reviewed/Exam performed by Physician: Yes Changes to H&P: No ASA Class (for procedural sedation): II
[2022-12-26] MEDS: CEFAZOLIN 2 GM/100 ML PREMIX 100 ML IV (07:55)
[2022-12-26] MEDS: BUPIVACAINE 0.25% W/ EPI 30 ML VIAL INJ (08:03)
--- NOTE | 2022-12-26 08:04 | SUR.OPER ---
Supine on padded OR bed, head on pillow, arms secured on padded arm boards at <90 degrees abduction, legs uncrossed, safety belt at thigh, tape over blanket over lower legs. Pt positioned per direction and supervision of Dr Wood.
--- NOTE | 2022-12-26 08:48 | PM.OP.1 ---
Operative Date/Time/Diagnoses Date of procedure: 12/26/22 Time of procedure: 08:48 Pre-op diagnosis: Umbilical hernia Post-op diagnosis: same Procedure & Clinicians Procedure: Open umbilical hernia repair with mesh Same procedure as scheduled: Yes Surgeon: Rick Wood Anesthesia Type: General Operative Notes Procedure in detail: Ancef was administered. The patient was brought to the operating room, placed on the table in the supine position and general endotracheal anesthesia was induced. The abdomen was prepped and draped in the usual fashion. A time-out was performed. A 5 cm curvilinear incision was made inferior to the umbilicus. The hernia sac was dissected free from the surrounding subcutaneous adipose tissue. The sac was dissected off the umbilical stalk using a combination of cautery, sharp and blunt dissection. The hernia sac was dissected free from the fascial ring and allowed to drop back down into the abdomen. The fascia was then closed transversely with 2 interrupted 0 Ethibond sutures. The subcutaneous adipose tissue was cleared off of the anterior sheath circumferentially about 2 cm in each direction. A piece of polypropylene mesh was trimmed to fit over the fascial closure and secured with Tisseel. Once the Tisseel was dried the umbilical skin was tacked down to the deep subcutaneous adipose tissue with a single 3-0 Vicryl stitch. The skin was closed with multiple interrupted 3-0 Vicryl dermal sutures followed by a running 4 Monocryl subcuticular closure. Steri-Strips and 4x4s were applied and an abdominal binder was applied. EBL: 5 mL Post-operative Condition: stable Disposition: PACU
--- NOTE | 2022-12-26 09:50 | SUR.PHASEII ---
0950: Discharge instructions reviewed with pt with time allowed for questions. Pt denies any distress and ready to discharge home. VSS, dressing C/D/I, abdomen round and soft. IV DC'd intact. Awaiting spouse to arrive to transport pt home.
== END 2022-12-26 10:12 | disposition home or self-care (01) ==
PROVIDERS: PCP Family Medicine; Referring Provider Surgery; Visit Provider Surgery
PROC: (CPT 49593; principal; 2022-12-26 07:45)
DX: K42.9 Umbilical hernia without obstruction or gangrene (principal)
CPT/HCPCS: 49593; J0690; J1100; J2405; J2704; J3010

== ENCOUNTER 2025-07-31 08:21 | Emergency (ER) | payer OTHER, SELFPAY ==
[2025-07-31 08:37] VITALS: BP 142/81; PULSE 75; RESP 16; TEMP 36.8; O2SAT 97; BMI 35.3
--- NOTE | 2025-07-31 08:39 | DI.RAD.S_ITS ---
PROCEDURE: XR KNEE LT 3V INDICATIONS: slipped/fell, heard pop TECHNIQUE: 3 views of the knee were acquired. COMPARISON: None. FINDINGS: Bones: No acute fractures or dislocations. No suspicious bony lesions. Soft tissues: Moderate to large joint effusion. No suspicious soft tissue calcifications. IMPRESSION: Moderate to large joint effusion. No acute osseous abnormality. If there is continued clinical concern or persistent symptoms, repeat radiographs or cross-sectional imaging (e.g. CT, MRI) may be helpful for further evaluation. Approved by: Evan Llanes M.D. on 07/31/2025 at 9:29
--- NOTE | 2025-07-31 09:45 | ED.LOWEXIN ---
HPI - Extremity Injury (Lower) General Chief Complaint: Extremity Injury, Lower Stated Complaint: left knee pain x 1 day Time Seen by Provider: 07/31/25 08:58 History of Present Illness HPI Narrative: 39-year-old male here with left knee pain beginning last night. States that he was playing soccer on grass planted his leg felt a pop and developed pain and swelling. He is able to weight bear but it is painful. Not anticoagulated, no comorbidities. Related Data Home Medications ?Medication ?Instructions ?Recorded ?Confirmed cetirizine 10 mg capsule (Zyrtec) 10 mg PO DAILY 06/11/18 01/22/25 fluoxetine 60 mg PO DAILY 12/13/22 01/22/25 lamotrigine 200 mg PO DAILY 12/13/22 01/22/25 Previous Rx's ?Medication ?Instructions ?Recorded cyclobenzaprine 5 mg tablet 5 mg PO TID PRN muscle spasm #45 01/22/25 tabs Allergies Allergy/AdvReac Type Severity Reaction Status Date / Time bee venom protein (honey bee) Allergy ITCHING Verified 01/22/25 10:51 Patient History Medical History (Updated 07/31/25 @ 10:01 by Raman Laboy MD) Obesity (BMI 35.0-39.9 without comorbidity) Mood disorder Sleep apnea (~2008) Asthma (~2007) Chicken pox (~1989) Fatty liver (~2007) Vertigo (~2003) Seasonal allergies Anxiety (~2009) Depression (~2009) History of traumatic rupture of spleen Surgical History (Updated 01/11/23 @ 19:41 by Cindi Gan) Anesthesia History of tonsillectomy (~1989) H/O sinus surgery History of appendectomy (~2002) Family History (Updated 01/11/23 @ 19:43 by Cindi Gan) Father Hypertension Grandfather Cancer Grandfather Flu Social History household members: spouse and children alcohol intake: current alcohol intake frequency: a few times a month Exam Narrative Exam Narrative: Patient appears to be in no distress. Normal respiratory effort, fully alert and oriented Left knee is swollen without visible deformity there is a palpable effusion. Diminished range of motion, distal neurovascular exam is intact Initial Vital Signs Initial Vital Signs: Vital Signs Temperature 98.3 F 07/31/25 08:37 Pulse Rate 75 07/31/25 08:37 Respiratory Rate 16 07/31/25 08:37 Blood Pressure 142/81 H 07/31/25 08:37 Pulse Oximetry 97 07/31/25 08:37 Oxygen Delivery Method Room Air 07/31/25 08:37 Course Orders Ordered: ED Orders 07/31/25 08:39 XR knee LT 3V Stat Vital Signs Vital signs: Vital Signs - 8 hr 07/31/25 08:37 Temperature 98.3 F Pulse Rate 75 Respiratory Rate 16 Blood Pressure 142/81 H Pulse Oximetry 97 Oxygen Delivery Method Room Air MDM - Extremity Injury (Lower) Imaging Data Extremity x-ray #1: My Impression: Independent review of left knee x-ray, no acute fracture joint effusion is present Radiologist's Impression: [address] [address] XRay Report Signed Patient: Vlad Thakkar MR#: [id number] : 1985 Acct:[id number] Age/Sex: 39 / M Date of Service: 07/31/25 Loc: ED Accession Number: [id number] Procedure: XR knee LT 3V Ordering Provider: Raman Laboy MD PROCEDURE: XR KNEE LT 3V INDICATIONS: slipped/fell, heard pop TECHNIQUE: 3 views of the knee were acquired. COMPARISON: None. FINDINGS: Bones: No acute fractures or dislocations. No suspicious bony lesions. Soft tissues: Moderate to large joint effusion. No suspicious soft tissue calcifications. IMPRESSION: Moderate to large joint effusion. No acute osseous abnormality. If there is continued clinical concern or persistent symptoms, repeat radiographs or cross-sectional imaging (e.g. CT, MRI) may be helpful for further evaluation. Approved by: Evan Llanes M.D. on 07/31/2025 at 9:29 [facility] Narrative Medical decision making narrative: 39-year-old male with an acute knee injury not associated with the fracture. Neurovascularly intact. Patient is referred to Orthopedics and we will be in a knee immobilizer in the meantime recommended [id number] analgesia icing and elevation. Discharge Plan Departure Patient Disposition: Home Clinical Impression: Acute internal derangement of left knee Instructions: DI for Knee Pain Activity Restrictions/Additional Instructions: Today, we saw you for an acute injury to her left knee. I recommend you follow up with Orthopedics and we have made a referral. In the meantime, you should wear the knee immobilizer when you are not in bed. May weight bear as tolerated, use ibuprofen 600 mg 3 times a day as needed for pain may also use Tylenol (acetaminophen) 650-1000 mg up to 4 times a day total daily dose should not exceed 4000 mg. Apply ice packs to your knee, keep the ice pack from direct skin contact and remove after 10-15 minutes. You can do this multiple times a day. Elevate your knee when able. Prescriptions: No Action cetirizine [Zyrtec] 10 mg capsule 10 mg PO DAILY fluoxetine 60 mg PO DAILY cyclobenzaprine 5 mg tablet 5 mg PO TID PRN (Reason: muscle spasm) Qty: 45 11RF lamotrigine 200 mg PO DAILY Referrals: Jesus Solorio MD [Physician, Orthopedic Surgery] Ivett Oneill DO [Primary Care Provider, Family Practice] Stand Alone Forms: Patient Portal/API
== END 2025-07-31 10:19 | disposition home or self-care (01) ==
PROVIDERS: Emergency Provider Emergency Medicine; PCP Family Medicine
DX: M23.92 Unspecified internal derangement of left knee (principal); X58.XXXA Exposure to other specified factors, initial encounter; Y93.66 Activity, soccer
CPT/HCPCS: 73562; 99281; 99283

== ENCOUNTER → 2025-08-19 17:11 | Outpatient (CLI) | payer OTHER, SELFPAY ==
--- NOTE | 2025-08-19 17:12 | DI.MRI.S_ITS ---
PROCEDURE: MR KNEE LT WO CON INDICATIONS: left knee pain TECHNIQUE: Noncontrast sagittal PD fast spin echo and T2 fast spin echo with fat saturation, sagittal 3-D FLASH with fat saturation; coronal T1 spin echo and PD fast spin echo with fat saturation, and axial PD fast spin echo with fat saturation through the knee. COMPARISON: None. FINDINGS: Image quality: Excellent. Bones and cartilage: Abnormal low T1 high T2 signal, bone edema in the epiphysis, metaphysis of the medial greater than lateral tibial plateaus with a heterogeneous approximately 1 cm area osteonecrosis in the posterior medial tibial plateau. Findings may be related to bone contusion, trabecular injury, posttraumatic edema or other cause of bone edema. Less likely to be related to chronic degenerative subchondral edema. Follow-up is needed. There is an a in approximately a 6 mm focal cartilage defect with underlying edema in the medial femoral condyle medially as well. Mild diffuse cartilage thinning is noted in the medial greater than lateral compartment. Patellofemoral cartilage is within normal limits for patient's age. Menisci: Subtle signal changes are noted in the posterior horn of the medial meniscus which may be related to internal globular degenerative signal however horizontal tear extending towards the mid body and exiting to the posterior and medial margins could have a similar appearance. Mild posterior meniscocapsular separation medially. The lateral meniscus is intact. Cruciate ligaments: Abnormal appearance of the anterior cruciate ligament with heterogeneous signal, thickening most notably proximally also mid and distal with a few intact fibers suspicious for ACL tear without complete tear or retraction. Posterior cruciate ligament is intact. Medial structures: Increased T2 weighted signal/edema surrounding the medial collateral ligament suggest grade 1 injury. Moderate popliteal cyst measures up to approximately 5 cm cc by 1.8 cm AP by 1.5 cm transverse maximal dimensions likely partially ruptured with adjacent edema in the soft tissues. Increased T2 weighted signal, tendinopathy distal semimembranosus tendon insertion. Visualized portions of the pes anserinus tendons appear normal. Lateral structures: The lateral collateral ligament, long and short heads of the biceps femoris tendon appear intact. The popliteus tendon appears normal. Iliotibial band appears normal. Anterior structures: Nonspecific edema in the subcutaneous tissues anterior to the patella and patellar ligament. Mild nonspecific edema in the infrapatellar fat pad. The quadriceps and patellar tendons appear intact. Mild 3 mm lateral subluxation of the patella with lateral tilt. No femoral trochlear dysplasia or ventral trochlear prominence. Joint space: [id number] knee joint effusion. IMPRESSION: Multiple areas of abnormal bone edema in the medial and lateral tibial plateaus, medial femoral condyle as discussed above with focal cartilage defect medial femoral condyle and osteonecrosis medial tibial plateau. Anterior cruciate ligament tear. Possible posterior horn medial meniscus tear as discussed above. Other findings as above. Dictated by: Jesus Barrios M.D. on 08/21/2025 at 9:08 Approved by: Jesus Barrios M.D. on 08/21/2025 at 9:43
== END ==
LOC: MRI 17:11
PROVIDERS: PCP Family Medicine; Referring Provider Physician Assistant Surgical; Visit Provider Physician Assistant Surgical
DX: S83.512A Sprain of anterior cruciate ligament of left knee, initial encounter (principal); S83.012A Lateral subluxation of left patella, initial encounter; M23.92 Unspecified internal derangement of left knee; M25.462 Effusion, left knee; M89.9 Disorder of bone, unspecified; M87.9 Osteonecrosis, unspecified
CPT/HCPCS: 73721

== ENCOUNTER 2025-10-13 09:52 | Day surgery (SDC) | payer OTHER, SELFPAY ==
[2025-09-07 15:44] VITALS: BMI 35.3
[2025-10-13] VITALS (11 sets, daily range): BP systolic 119–138; BP diastolic 68–84; PULSE 58–70; RESP 12–20; TEMP 36.5–36.7; O2SAT 92–99
[2025-10-13] MEDS: LACTATED RINGERS 1,000 ML 42 ML IV ×2 (10:18→12:59)
--- NOTE | 2025-10-13 10:28 | PM.PREOP ---
Pre-operative Note Interval Note History & Physical reviewed/Exam performed by Physician: Yes Changes to H&P: No
--- NOTE | 2025-10-13 11:12 | SUR.PREOP ---
Block time out 1055; start time [1056] . Monitoring initiated and maintained throughout procedure. Oxygen and medications given by anesthesiologist. Patient remained stable throughout procedure, no adverse reactions noted. Block end time [1056]. V/S on flowsheet
--- NOTE | 2025-10-13 11:29 | SUR.OPER ---
patient noted small reddened mcgill to left knee prior to intake
--- NOTE | 2025-10-13 11:33 | SUR.OPER ---
Supine on padded OR bed. Pillow under head, arms secured on padded armboards <90 degree abduction. Safety belt across torso. Non-operative leg secured with tape over blanket over lower leg. Hip Bump to operative leg and operative leg secured/managed during procedure by surgeon. Foam padded brace at thigh of operative leg. Surgeon approved final position prior to start of procedure.
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
[2025-10-13] MEDS: ACETAMINOPHEN 325 MG TABLET 975 MG PO (13:28)
[2025-10-13] MEDS: ONDANSETRON 4 MG/2 ML INJ IV (13:28)
== END 2025-10-13 14:12 | disposition home or self-care (01) ==
PROVIDERS: PCP Family Medicine; Referring Provider Family Medicine; Visit Provider Orthopaedic Surgery
PROC: 0MRP47Z Replacement of Left Knee Bursa and Ligament with Autologous Tissue Substitute, Percutaneous Endoscopic Approach (ICD-10-PCS; CPT 29888; principal; 2025-10-13 11:45)
DX: S83.512A Sprain of anterior cruciate ligament of left knee, initial encounter (principal); M94.262 Chondromalacia, left knee; G47.33 Obstructive sleep apnea (adult) (pediatric); J45.909 Unspecified asthma, uncomplicated; X50.1XXA Overexertion from prolonged static or awkward postures, initial encounter; Y93.66 Activity, soccer
CPT/HCPCS: 29888; C1713; J0687; J1100; J1885; J2250; J2405; J2704; J3010; J7050; J7120